=== PATIENT | female | born 1985 | race Caucasian/White ===

== ENCOUNTER 2016-07-28 17:11 | Emergency (ER) | payer OTHER ==
[2016-07-28 17:32] LABS: COLOR PALE YELLOW; LEUKOCYTE ESTERASE,URINE NEGATIVE (NEGATIVE); NITRITE,URINE NEGATIVE (NEGATIVE); PH,URINE 5.5 (5.0-7.5)
--- NOTE | 2016-07-28 17:51 | EDPHY ---
H & P Stated Complaint: 2 months of pain rt hip,going up back,and both sides lower abdomen Time Seen by Provider: 07/28/16 17:42 HPI/ROS: CHIEF COMPLAINT: Right flank pain and left inguinal pain HISTORY OF PRESENT ILLNESS: Patient is a 30 year old female who comes to the emergency department complaining right flank pain and left inguinal pain that has been intermittent for the last 2 weeks. She states that hurts more when she bends over but that also fluctuates even when she is lying still. She denies GI symptoms. She has a history of hysterectomy. She denies urinary symptoms. No fevers. No trauma or obvious injury. She has a history of surgical complication with a hysterectomy where her right ureter was damaged and causing some sort of hydronephrosis. She had to go back to surgery to have her right ureter repaired. She has never had kidney stones. REVIEW OF SYSTEMS: Constitutional: denies: chills, fever, recent illness, recent injury EENTM: denies: blurred vision, double vision, nose congestion Respiratory: denies: cough, shortness of breath Cardiac: denies: chest pain, irregular heart rate, lightheadedness, palpitations Gastrointestinal/Abdominal: denies: abdominal pain, diarrhea, nausea, vomiting, blood streaked stools Genitourinary: See HPI no dysuria, no frequency, no hematuria Musculoskeletal: see HPI Skin: denies: lesions, rash, jaundice, bruising Neurological: denies: headache, numbness, paresthesia, tingling, dizziness, weakness Hematologic/Lymphatic: denies: blood clots, easy bleeding, easy bruising Immunologic/allergic: denies: HIV/AIDS, transplant EXAM: GENERAL: Well-appearing, obese and in no acute distress. HEAD: Atraumatic, normocephalic. EYES: Pupils equal round and reactive to light, extraocular movements intact, sclera anicteric, conjunctiva are normal. ENT: TMs normal, nares patent, oropharynx clear without exudates. Moist mucous membranes. NECK: Normal range of motion, supple without lymphadenopathy or JVD. LUNGS: Breath sounds clear to auscultation bilaterally and equal. No wheezes rales or rhonchi. HEART: Regular rate and rhythm without murmurs, rubs or gallops. ABDOMEN: Soft, nontender, normoactive bowel sounds. No guarding, no rebound. No masses appreciated. BACK: No CVA tenderness, no spinal tenderness, step-offs or deformities EXTREMITIES: Normal range of motion, no pitting or edema. No clubbing or cyanosis. NEUROLOGICAL: Cranial nerves II through XII grossly intact. Normal speech, normal gait. 5/5 strength, normal movement in all extremities, normal sensation PSYCH: Normal mood, normal affect. SKIN: Warm, dry, normal turgor, no visible rashes or lesions. Source: Patient Exam Limitations: No limitations - Personal History LMP (Females 10-55): Hysterectomy - Medical/Surgical History Hx Asthma: Yes Hx Chronic Respiratory Disease: No Hx Diabetes: No Hx Cardiac Disease: No Hx Renal Disease: No Hx Cirrhosis: No Hx Alcoholism: No Hx HIV/AIDS: No Hx Splenectomy or Spleen Trauma: No Other PMH: hysterectomy for fibroid followed by surgery that is used to open rt ureter which was twisted or deflated. ([facility]) - Family History Significant Family History: No pertinent family hx - Social History Smoking Status: Never smoked Alcohol Use: Sober Drug Use: None Constitutional: Initial Vital Signs Temperature (C) 36.6 C 07/28/16 17:16 Heart Rate 92 07/28/16 17:16 Respiratory Rate 18 07/28/16 17:16 Blood Pressure 113/70 07/28/16 17:16 O2 Sat (%) 97 07/28/16 17:16 O2 Delivery Mode Room Air Allergies/Adverse Reactions: No Known Allergies Allergy (Unverified 07/28/16 17:15) Home Medications: Medication Instructions Recorded Omeprazole 07/28/16 Medical Decision Making - Diagnostics Imaging: Discussed imaging studies w/ technical clerk Radiologist ED Course/Re-evaluation: 7:55 p.m. we discussed the lab and imaging results. The patient is reassured. She is currently symptom free. She states that ibuprofen helped with her pain for about 6 or 7 hours. I encouraged her to take this more regularly and follow up with her primary doctor in 2-3 days. She understands and agrees with this plan. She declines further workup or testing. She thinks it is primarily musculoskeletal. Differential Diagnosis: Partial list of the Differential diagnosis considered include but were not limited to; urinary tract infection, hydronephrosis, kidney stone, musculoskeletal pain and although unlikely based on the history and physical exam, I also considered hernia, ovarian cyst, appendicitis. I discussed these differential diagnoses and the plan with the patient as well as the usual and expected course. The patient understands that the diagnosis is provisional and that in medicine we are not always correct and that further workup is often warranted. Usual and customary warnings were given. All of the patient's questions were answered. The patient was instructed to return to the emergency department should the symptoms at all worsen or return, otherwise to followup with the physician as we discussed. - Data Points Laboratory Results: Laboratory Results 07/28/16 18:15 07/28/16 18:15 Medications Given: Discontinued Medications Hydromorphone HCl (Dilaudid) 0.5 mg IVP EDNOW ONE Stop: 07/28/16 18:20 Last Admin: 07/28/16 18:21 Dose: 0.5 mg Departure - Departure Disposition: Home, Routine, Self-Care Clinical Impression: Back pain Qualifiers: Back pain location: low back pain Chronicity: acute Back pain laterality: right Sciatica presence: without sciatica Qualified Code(s): M54.5 - Low back pain Condition: Fair Instructions: Back Pain (ED) Referrals: ALYSIA LION,. [Primary Care Provider] - As per Instructions
[2016-07-28] MEDS ORDERED: HYDROmorphONE/DILAUDID 1 MG/ML SYR IVP ONE (18:19)
[2016-07-28 18:20] LABS: % IMMATURE GRANULYOCYTES 0.3 % (0.0-1.1); ABSOLUTE IMMATURE GRANULOCYTES 0.02 10^3/uL (0.00-0.10); ADD DIFF? NO; ADD MORPH? NO; ADD SCAN? NO; ATYPICAL LYMPHOCYTE FLAG 0 (0-99); FRAGMENT RBC FLAG 0 (0-99); HEMATOCRIT 40.5 % (38.0-47.0); HEMOGLOBIN 14.2 g/dL (12.6-16.3); LEFT SHIFT FLG 0 (0-99); LIPEMIA HEMOLYSIS FLAG 90 (0-99); MEAN CELL HEMOGLOBIN 33.3 pg (27.9-34.1); MEAN CELL HEMOGLOBIN CONCENTR. 35.1 g/dL (32.4-36.7); MEAN CELL VOLUME 94.8 fL (81.5-99.8); MEAN PLATELET VOLUME 9.8 fL (8.7-11.7); PLATELET CLUMPS FLAG 0 (0-99); PLATELET COUNT 310 10^3/uL (150-400); RED BLOOD CELL COUNT 4.27 10^6/uL (4.18-5.33); RED CELL DISTRIBUTION WIDTH 13.1 % (11.5-15.2)
[2016-07-28 18:32] LABS: ANION GAP 15 mEq/L (8-16); CARBON DIOXIDE 23 mEq/l (22-31); CHLORIDE 103 mEq/L (97-110); CREATININE 0.6 mg/dL (0.6-1.0); GLOMERULAR FILTRATION RATE > 60; GLUCOSE 97 mg/dL (70-100); POTASSIUM 3.7 mEq/L (3.5-5.2); SODIUM 141 mEq/L (134-144)
[2016-07-28 20:01] VITALS: BP 107/80; PULSE 69; RESP 16; TEMP 98.2; O2SAT 96
== END 2016-07-28 20:04 | disposition home or self-care (01) ==
LOC: CED 17:11
DX: M54.5 Low back pain (principal); J45.909 Unspecified asthma, uncomplicated; Z90.710 Acquired absence of both cervix and uterus
CPT/HCPCS: 76770-PO; 76856-PO; 80048-PO; 81003-PO; 85025-PO; 96374; J1170